=== PATIENT | female | born 1980 | race African-American/Black ===

== ENCOUNTER 2020-05-17 01:52 | Emergency (ER) | payer OTHER ==
--- OUTSIDE RECORDS SUMMARY | 2020-05-17 01:54 | XMS REPORT | Continuity of Care Document ---
:1980 Author Organization [facility] t Address [address] [place] [address] Care Team Providers Name Role Phone Savanah HUNTLEY Primary Care Physician Nadeem HUNTLEY, Tee Attending Clinician Payers Payer Name Policy Type Policy Number Effective Date Expiration Date S bucky MULTIPLANALL [id number] 2017 [place] IED/PHCS-MUL 00:00:00 Ten[facility] [id number] - PresentPPO Problems Condition Condition Condition Status Onset Resolution Last Treating Co mments Source Name Details Category Date Date Treatment Clinician Date GERD GERD Disease Active [place] without without 2-18 [facility] esophagiti esophagiti 00:00: st s s 00 Hiatal Hiatal Disease Active [place] hernia hernia 2-18 Methodi 00:00: st 00 Papanicola Papanicola Disease Active [place] ou smear ou smear 1-09 Method i of cervix of cervix 00:00: st with low with low 00 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 Overview: 5 colpo done Allergies, Adverse Reactions, Alerts Allergy Allergy Status Severity Reaction(s) Onset Inactive Treating Comm ents Source Name Type Date Date Clinician Meperidi Propensi Active 2017-03 [place] ty to 03-16 [facility] adverse 00:00: st reaction 00 s to drug No Known DA Active U 2017-03 [facility] Allergie 03-11 [place] s 00:00: d 00 [facility] hydrocod DA Active [facility] 2017-03 [facility] one 03-11 [facility] [place] acetamin DA Active U 2017-03 [facility] ophen 03-11 [facility] [place] meperidi DA Active [place] 2017-03 [facility] ne 03-11 [facility] [place] Hydrocod Propensi Active Other (See [place] one-Acet ty to Comments) 3 Metho di aminophe adverse 00:00: st n reaction 00 s to drug Meperidi Propensi Active [facility] Hcl ty to Breath 4- Methodi adverse 00:00: st reaction 00 s to drug Family History Family Member Diagnosis Comments Start Date Stop Date Source Natural father Dementia [place] Tenriism Natural father Diabetes [place] Tenriism Natural father Hypertension [place] Tenriism Natural father Congenital heart [place] Maternal Cancer [place] grandfather Tenriism Maternal Heart attack [place] grandmother Tenriism Natural mother Hypertension [place] Tenriism Paternal Cancer [place] grandfather Tenriism Social History Social Habit Start Date Stop Date Quantity Comments Source Exposure to Not sure [place] Metho dist SARS-CoV-2 (event) Tobacco use and 2020-04-24 2020-04-24 Never used [facility] ethodist exposure 00:00:00 00:00:00 Alcohol intake 2020-04-24 2020-04-24 Current [facility] thodist 00:00:00 00:00:00 non-drinker of alcohol (finding) Sex Ass[birth year] [facility] ethodist 00:00:00 00:00:00 Smoking Status Start Date Stop Date Source Never smoker [place] [facility] Medications Ordered Filled Start Stop Current Ordering Indication Dosage Frequency Signature Comments Components Source Medication Medication Date Date Medication? Clinician (SIG) Name Name omeprazole 2020- No 20mg QD Take 20 mg Carmichael (PriLOSEC) 04-24 by mouth Meth ila 20 MG 15:42: 00:[address] capsule 00 :00 omeprazole 2020- Yes Hiatal 20mg QD Take 1 Ho christian (PriLOSEC) 04-24 0320 hernia capsule Met hodi 20 MG 00:00: 23:59 ([address] capsule 00 :00 total) by mouth daily for 30 days. Immunizations Ordered Immunization Filled Immunization Date Status Commen ts Source Name Name Rubella 2010-08-12 Completed [place] 00:00:00 [facility] Tdap 2010-08-12 Completed [place] 00:00:00 [facility] Vital Signs Vital Name Observation Time Observation Value Comments Source Body height 2020-04-24 15:30:00 160 cm [place] Tenriism Body weight 2020-04-24 15:30:00 61.236 kg [place] [facility]ism BMI 2020-04-24 15:30:00 23.91 kg/m2 [place] Tenriism Procedures This patient has no known procedures. Plan of Care Planned Activity Planned Date Details Comments Source Future Scheduled 2019-10-06 INFLUENZA VACCINE [place] [facility] Test 00:00:00 [code = INFLUENZA VACCINE] Future Scheduled 2002 Screening for [place] Me thodist Test 00:00:00 malignant neoplasm of cervix (procedure) [code = 512280729] Future Scheduled 1999-12-18 Hepatitis C [place] Met hodist Test 00:00:00 screening (procedure) [code = 911630914] Future Scheduled 1997 COVID-19 VACCINE (1 [place] [facility] Test 00:00:00 of 2) [code = COVID-19 VACCINE (1 of 2)] Encounters Start End Encounter Admission Attending Care Care Encounter Source Date/Time Date/Time Type Type Clinicians Facility Department ID 2020-04-24 2020-04-24 Outpatient [facility] [id number] [place] 00:00:00 00:00:00 [facility] [address] Results This patient has no known results.
[2020-05-17 02:26] LABS: Absolute Lymphocytes (CBC) 2.1 K/uL (0.7-4.9); Basophils % 1.3 % (0-1.3); Hematocrit 34.9 % (36.0-45.0); Lymphocytes % 48.3 % (15.3-44.8); MPV 6.9 fL (7.6-11.3); RBC Red Blood Cell Count 3.74 M/uL (3.86-4.86)
[2020-05-17] MEDS ORDERED: MAGNES/ALUMIN/SIMET 30ML UCUP ONE (02:27)
[2020-05-17] MEDS ORDERED: LIDOCAINE VISCOUS 2% SOLN 15 ML UDC ONE (02:28)
[2020-05-17 02:40] LABS: ALT/SGPT 16 U/L (12-78); AST/SGOT 11 U/L (15-37); Albumin 3.8 g/dL (3.4-5.0); Alkaline Phosphatase 70 U/L (45-117); BUN Blood Urea Nitrogen 9 mg/dL (7-18); Bicarbonate 30 mmol/L (21-32); Bilirubin Direct < 0.1 mg/dL (0-0.2); Bilirubin Total 0.3 mg/dL (0.2-1.0); Glucose Level 92 mg/dL (74-106); Lipase 186 U/L (73-393); Potassium 3.6 mmol/L (3.5-5.1); Protein, Total 8.2 g/dL (6.4-8.2); Sodium Level 140 mmol/L (136-145)
--- NOTE | 2020-05-17 03:18 | ER ---
Nurse's Notes [facility] Name: Courtney Resendiz Age: 39 yrs Sex: Female : 1980 Arrival Date: 05/17/2020 Time: 01:55 Bed 6 Private MD: Diagnosis: Unspecified abdominal pain Presentation: 05/17 02:00 Chief complaint: Patient states: Reports abdominal pain that started about two hours ea ago. Pt denies vomiting and diarrhea. Coronavirus screen: At this time, the client does not indicate any symptoms associated with coronavirus-19. Ebola Screen: No symptoms or risks identified at this time. Initial Sepsis Screen: Does the patient meet any 2 criteria? No. Patient's initial sepsis screen is negative. Does the patient have a suspected source of infection? No. Patient's initial sepsis screen is negative. Risk Assessment: Do you want to hurt yourself or someone else? Patient reports no desire to harm self or others. Onset of symptoms was May 17, 2020. 02:00 Method Of Arrival: Ambulatory ea 02:00 Acuity: BRICE 3 ea Triage Assessment: 02:10 General: Appears uncomfortable, Behavior is appropriate for age. Pain: Complains of ea pain in abdomen. Neuro: Level of Consciousness is awake, alert, obeys commands, Oriented to person, place, time. Cardiovascular: Patient's skin is warm and dry. Respiratory: Airway is patent Respiratory effort is even, unlabored, Respiratory pattern is regular, symmetrical. GI: Abdomen is non-distended. Derm: Skin is intact, Skin is pink, warm \\T\\ dry. Skin temperature is warm. Historical: - Allergies: 02:10 Demerol; ea 02:10 Codeine; ea - Home Meds: 02:10 Omeprazole Oral [Active]; ea - PSHx: 02:10 None; ea - Immunization history:: Adult Immunizations up to date. - Social history:: Smoking status: Patient denies any tobacco usage or history of. - Family history:: not pertinent. - Hospitalizations: : No recent hospitalization is reported. Screenin:08 Abuse screen: Denies threats or abuse. Nutritional screening: No deficits noted. ea Tuberculosis screening: No symptoms or risk factors identified. Fall Risk None identified. Assessment: 02:12 Reassessment: see triage assessment. ea 03:15 Reassessment: Patient appears in no apparent distress at this time. Patient is alert, rr5 oriented x 3, equal unlabored respirations, skin warm/dry/pink. patient stated " i feel better and i want ot go now." ED provider aware with order for AMA Patient states feeling better. Patient states symptoms have improved. Vital Signs: 02:00 BP 124 / 91; Pulse 88; Resp 18; Pulse Ox 100% ; Weight 58.97 kg; Height 5 ft. 3 in. ea (160.02 cm); 02:00 Temp 98.2; rr5 03:16 BP 125 / 80; Pulse 80; Resp 16; Pulse Ox 98% ; rr5 02:00 Body Mass Index 23.03 (58.97 kg, 160.02 cm) ea ED Course: 01:55 Patient arrived in ED. cl3 01:58 Ra Urban MD is Attending Physician. rn 02:07 Hugo Pires RN is Primary Nurse. rr5 02:08 Triage completed. ea 02:08 Patient has correct armband on for positive identification. Bed in low position. Call ea light in reach. line o scribe operator on. Pulse ox on. NIBP on. 02:08 Arm band placed on right wrist. Patient placed in an exam room, on a stretcher, on ea pulse oximetry. 02:10 Inserted saline lock: 20 gauge in right antecubital area, using aseptic technique. rr5 Blood collected. 02:10 No provider procedures requiring assistance completed. rr5 03:16 IV discontinued, intact, bleeding controlled, No redness/swelling at site. Pressure rr5 dressing applied. Administered Medications: 02:15 Drug: GI Cocktail without - (Maalox Suspension 30 ml, Lidocaine Liquid 2 % 15 rr5 ml) Route: PO; 03:15 Follow up: Response: No adverse reaction rr5 Outcome: 03:16 AMA AMA form signed rr5 03:16 Condition: stable 03:16 Discharge instructions given to patient, Instructed on discharge instructions, follow up and referral plans. Demonstrated understanding of instructions, follow-up care. 03:18 Patient left the ED. rr5 Signatures: Ra Urban MD MD rn Antunez, Elena, RN RN ea Roque, Raymond, RN RN rr5 Miguel Villafana cl3
--- NOTE | 2020-05-17 03:18 | EDPHYS ---
Physician Documentation [facility] Name: Courtney Resendiz Age: 39 yrs Sex: Female : 1980 Arrival Date: 05/17/2020 Time: 01:55 Bed 6 Private MD: ED Physician Ra Urban HPI: 05/17 02:54 This 39 yrs old Black Female presents to ER via Ambulatory with complaints of Abdominal rn Pain. 02:54 The patient presents with abdominal pain in the epigastric area, in the periumbilical rn area. Onset: The symptoms/episode began/occurred 2 hour(s) ago. The symptoms do not radiate. Associated signs and symptoms: Pertinent negatives: nausea and vomiting, constipation, diarrhea, fever. The symptoms are described as achy, sharp. Modifying factors: The symptoms are alleviated by nothing, the symptoms are aggravated by touching the area. Severity of pain: At its worst the pain was moderate in the emergency department the pain is unchanged. The patient has not experienced similar symptoms in the past. The patient has not recently seen a physician. Historical: - Allergies: 02:10 Demerol; ea 02:10 Codeine; ea - Home Meds: 02:10 Omeprazole Oral [Active]; ea - PSHx: 02:10 None; ea - Immunization history:: Adult Immunizations up to date. - Social history:: Smoking status: Patient denies any tobacco usage or history of. - Family history:: not pertinent. - Hospitalizations: : No recent hospitalization is reported. ROS: 02:54 Constitutional: Negative for fever, chills, and weight loss, Eyes: Negative for injury, rn pain, redness, and discharge, Cardiovascular: Negative for chest pain, palpitations, and edema, Respiratory: Negative for shortness of breath, cough, wheezing, and pleuritic chest pain, Abdomen/GI: + abd pain Back: Negative for injury and pain, : Negative for injury, bleeding, discharge, and swelling, MS/Extremity: Negative for injury and deformity, Skin: Negative for injury, rash, and discoloration, Neuro: Negative for headache, weakness, numbness, tingling, and seizure. 02:54 All other systems are negative. Exam: 02:54 Constitutional: This is a well developed, well nourished patient who is awake, alert, rn and in no acute distress. Head/Face: Normocephalic, atraumatic. Cardiovascular: Regular rate and rhythm. No pulse deficits. Respiratory: No increased work of breathing, no retractions or nasal flaring. Abdomen/GI: soft, + mild epigastric and periumbilical tenderness, no rebound or masses Skin: Warm, dry MS/ Extremity: Pulses equal, no cyanosis. Neuro: Awake and alert, GCS 15 Vital Signs: 02:00 BP 124 / 91; Pulse 88; Resp 18; Pulse Ox 100% ; Weight 58.97 kg; Height 5 ft. 3 in. ea (160.02 cm); 02:00 Temp 98.2; rr5 03:16 BP 125 / 80; Pulse 80; Resp 16; Pulse Ox 98% ; rr5 02:00 Body Mass Index 23.03 (58.97 kg, 160.02 cm) ea MDM: 01:58 Patient medically screened. rn 03:11 Differential diagnosis: appendicitis, cholecystitis, Cholelithiasis, gastritis, rn gastroesophageal reflux disease, non-specific abd pain, pancreatitis, Peptic Ulcer Disease, gastritis. Data reviewed: vital signs, nurses notes, lab test result(s). Response to treatment: the patient's symptoms have markedly improved after treatment. Refusal of service: The patient/guardian displays adequate decision making capability and despite a detailed discussion of alternatives, benefits, risks, and consequences refuses: CT Scan. ED course: Pt states feels better after GI cocktail, still recommend CT given periumbilical pain and severity of pain, pt declines, wants to leave without imaging. . 03:14 Counseling: I had a detailed discussion with the patient and/or guardian regarding: the rn historical points, exam findings, and any diagnostic results supporting the discharge/admit diagnosis, lab results. 05/17 02:04 Order name: Basic Metabolic Panel rn 05/17 02:04 Order name: CBC with Diff rn 05/17 02:04 Order name: Hepatic Function; Complete Time: 03:02 rn 05/17 02:04 Order name: Lipase; Complete Time: 03:02 rn 05/17 02:05 Order name: Basic Metabolic Panel; Complete Time: 03:02 EDMS 05/17 02:04 Order name: IV Saline Lock; Complete Time: 02:16 rn 05/17 02:04 Order name: Labs collected and sent; Complete Time: 02:16 rn 05/17 02:05 Order name: CBC with Automated Diff; Complete Time: 03:02 EDMS Administered Medications: 02:15 Drug: GI Cocktail without - (Maalox Suspension 30 ml, Lidocaine Liquid 2 % 15 rr5 ml) Route: PO; 03:15 Follow up: Response: No adverse reaction rr5 Disposition: 05/17/20 03:16 Patient has left against medical advice. Impression: Unspecified abdominal pain. - Patients states they are going to Home. - Condition is Stable. - Discharge Instructions: Abdominal Pain, Adult. Follow up: Private Physician; When: As needed; Reason: Recheck today's complaints, Re-evaluation by your physician. - Problem is new. - Symptoms have improved. Signatures: Dispatcher [employer] EDMS Ra Urban MD MD rn Antunez, Elena RN Hugo Laguna ea RN RN rr5 Corrections: (The following items were deleted from the chart) 03:18 03:16 05/17/2020 03:16 Patients has left against medical advice. Impression: rr5 Unspecified abdominal pain. Patient states they are going to Home. Condition is Stable. Follow up: Private Physician; When: As needed; Reason: Recheck today's complaints, Re-evaluation by your physician. Problem is new. Symptoms have improved. rn
[2020-05-17 03:28] VITALS: TEMP 98.2
[2020-05-17 03:29] VITALS: BP 125/80; O2SAT 98
== END 2020-05-17 03:18 | disposition left against medical advice (07) ==
LOC: ER 01:52
DX: R10.13 Epigastric pain (principal); Z88.5 Allergy status to narcotic agent
CPT/HCPCS: 36415; 80048; 80076; 83690; 85025; 99284